=== PATIENT | female | born 1965 | race Caucasian/White ===

== ENCOUNTER 2020-04-16 15:22 | Emergency (ER) | payer OTHER ==
[~2020-04-16] VITALS: Ht 162.6 cm; Wt 102.1 kg
[2020-04-16] MEDS ORDERED: WELLBUTRIN SR150 M1 PO (15:29)
[2020-04-16] MEDS ORDERED: HYDROXYZINE HCL25 M2 PO (15:30)
[2020-04-16] MEDS ORDERED: COLACE100 MG PO (16:45)
[2020-04-16] MEDS ORDERED: NORCO 5-325 TA1 EAC2 PO (16:45)
[2020-04-16 18:53] VITALS: BP 138/70
== END 2020-04-16 18:53 | disposition home or self-care (01) ==
LOC: ER 15:22
DX: S62.391A Other fracture of second metacarpal bone, left hand, initial encounter for closed fracture (principal); Z88.0 Allergy status to penicillin; Z79.899 Other long term (current) drug therapy; W18.39XA Other fall on same level, initial encounter; Y93.89 Activity, other specified; Y92.89 Other specified places as the place of occurrence of the external cause; Y99.8 Other external cause status